=== PATIENT | male | born 1960 | race Caucasian/White ===

== ENCOUNTER 2017-01-13 23:50 | Emergency (ER) | payer SELFPAY ==
[~2017-01-13] VITALS: Ht 177.8 cm; Wt 62.0 kg
[~2017-01-13 23:50] MED LIST: CLON.1 PO; LISI-360 PO; LOVA40TA PO
[2017-01-13 23:54] VITALS: BP 183/113; PULSE 90; RESP 16; TEMP 98.6; O2SAT 98
== END 2017-01-14 00:47 | disposition left against medical advice (07) ==
LOC: PHED 23:50
DX: Z53.21 Procedure and treatment not carried out due to patient leaving prior to being seen by health care provider (principal)
CPT/HCPCS: 99281